=== PATIENT | female | born 1955 | race Caucasian/White ===

== ENCOUNTER 2024-02-27 07:30 | Day surgery (SDC) | payer MEDICARE, SELFPAY ==
[2024-02-27 08:15] VITALS: BP 139/76; PULSE 86; RESP 17; TEMP 37.1; O2SAT 93
--- NOTE | 2024-02-27 08:34 | P.HP_ITS ---
History of Present Illness History of Present Illness Date Patient Seen: 02/27/24 Chief complaint: Screening Colonoscopy Narrative: History of colon polyps FOR[facility] Medical History (Updated 02/27/24 @ 08:15 by Jessica Brizuela RN) GERD (gastroesophageal reflux disease) Parkinsons disease (~06/29/19) Hypertension Surgical History (Updated 02/27/24 @ 08:14 by Jessica Brizuela RN) H/O section (~1982) Social History Smoking Status: Never smoker alcohol intake: never Meds Home Medications and Allergies Home Medications Medication Instructions Recorded Confirmed Type carbidopa ER 36.25 mg-levodopa 145 2 cap PO 4XD 02/27/24 02/27/24 History mg capsule,extended release (Rytary) famotidine 20 mg tablet 20 mg PO BID 02/27/24 02/27/24 History hydrochlorothiazide 12.5 mg capsule 12.5 mg PO DAILY 02/27/24 02/27/24 History losartan 50 mg tablet 50 mg PO DAILY 02/27/24 02/27/24 History Allergies Allergy/AdvReac Type Severity Reaction Status Date / Time azithromycin AdvReac Intermediate Diarrhea Verified 02/27/24 08:13 erythromycin base AdvReac Intermediate Diarrhea Verified 02/27/24 08:13 Exam Vital Signs (past 8 hours): - 02/27/24 08:15 Temperature 98.8 F Pulse Rate 86 Respiratory Rate 17 Blood Pressure 139/76 Pulse Oximetry 93 Oxygen Delivery Method Room Air Oxygen Delivery Method Room Air Narrative Exam Narrative: Oropharynx free of lesions Chest clear to auscultation percussion Cardiac exam reveals no S3 or murmur Assessment & Plan Assessment & Plan narrative: History of colon polyps need for follow-up colonoscopy. Risks, benefits, alternatives have been explained. Time-Based Coding :: [TOTAL MINUTES] spent with patient and on the chart (including review of chart, obtaining history, exam, reviewing outside data, placing orders, documenting exam and treatment plan, and counseling patient) on [DATE].
--- NOTE | 2024-02-27 08:35 | PM.OP.COLON ---
Operative Date/Time/Diagnoses Date of procedure: 02/27/24 Pre-op diagnosis: See indication and findings Procedure & Clinicians Study performed: Colonoscopy Indications: History of colon polyps Surgeon: Ralph Rashid Procedure Notes Procedure in detail: After informed consent was obtained the patient was placed in left lateral decubitus position. The video colonoscope was introduced the rectum slowly advanced cecum. Preparation was good. On slow withdrawal mucosa was carefully examined. The scope was removed. The patient tolerated the procedure well. Blood loss none Complications none Sedation mac Findings 1. Scattered sigmoid diverticulosis. 2. Otherwise negative colonoscopy to cecum Patient should have follow-up colonoscopy in 5 years
[2024-02-27 09:27] VITALS: BP 89/56; PULSE 83; RESP 14; TEMP 36.1; O2SAT 94
[2024-02-27 09:32] VITALS: BP 102/61; PULSE 76; RESP 12; O2SAT 94
[2024-02-27 09:36] VITALS: BP 125/77; PULSE 81; RESP 12; O2SAT 96
[2024-02-27 09:42] VITALS: BP 126/77; PULSE 79; RESP 14; O2SAT 96
== END 2024-02-27 10:04 | disposition home or self-care (01) ==
PROVIDERS: Referring Provider Internal Medicine Gastroenterology; Visit Provider Internal Medicine Gastroenterology
PROC: 0DJD8ZZ Inspection of Lower Intestinal Tract, Via Natural or Artificial Opening Endoscopic (ICD-10-PCS; CPT 45378; principal; 2024-02-27 09:00)
DX: Z12.11 Encounter for screening for malignant neoplasm of colon (principal); Z86.0100 Personal history of colon polyps, unspecified; K57.30 Diverticulosis of large intestine without perforation or abscess without bleeding
CPT/HCPCS: G0105; J2704; J3010

== ENCOUNTER → 2024-08-02 12:40 | Outpatient (CLI) | payer MEDICARE, SELFPAY ==
--- NOTE | 2024-08-02 12:41 | DI.MG.S_ITS ---
MM screening mammo BI: 08/02/2024. BI-RADS: 1 CLINICAL: 69-year old female for bilateral screening mammogram. Tyrer-Cuzick lifetime risk of 4.7%. No personal or first-degree family history of breast cancer. PRIOR EXAMS: 04/14/2023, 01/21/2021, 10/09/2019. MAMMOGRAPHY TECHNIQUE: 2D and 3D (tomosynthesis) digital mammographic views obtained, with additional images as needed for full coverage. Current study was also evaluated with a Computer Aided Detection (CAD) system. DENSITY B. There are scattered areas of fibroglandular density. MAMMOGRAPHY FINDINGS Bilateral: No suspicious mass, asymmetry, microcalcification, or other abnormality seen. IMPRESSION: * No evidence of malignancy. RECOMMENDATIONS Bilateral * Annual screening mammography. OVERALL ASSESSMENT CATEGORY BI-RADS-1: Negative. The [employer] recommends annual screening mammography beginning at age 40 for women with average risk of breast cancer. ELECTRONICALLY SIGNED: Nori Soliz M.D. on 08/04/2024 at 09:20:10 AM PT Interpreting Station ID: [id number]
== END ==
PROVIDERS: Visit Provider Family Medicine
DX: Z12.31 Encounter for screening mammogram for malignant neoplasm of breast (principal)
CPT/HCPCS: 77063; 77067